=== PATIENT | male | born 1985 | race Two or more races ===

== ENCOUNTER 2017-01-15 23:18 | Emergency (ER) | payer MEDICAID ==
[~2017-01-15] VITALS: Ht 172.7 cm; Wt 79.0 kg
[2017-01-15] MEDS ORDERED: SODIUM CHLORIDE 0.9% 1,000 ML IV ONE (23:48)
[2017-01-15] MEDS ORDERED: ONDANSETRON HCL 4MG/2ML VIAL IV STA (23:48)
[2017-01-16 00:18] LABS: BASOPHILS % 2.2 % (0.0-2.0); EOSINOPHILS % 0.2 % (0.0-5.0); HEMATOCRIT. 38.2 % (42.0-52.0); HEMOGLOBIN. 13.4 g/dL (14.0-18.0); LYMPHOCYTES % 40.4 % (20.0-50.0); MEAN CORPUSCULAR HEMOGLOBIN 33.3 pg (28.0-32.0); MEAN CORPUSCULAR VOLUME 94.5 fL (80.0-94.0); MEAN PLATELET VOLUME 8.5 fl (7.4-10.4); MONOCYTES % 8.8 % (2.0-8.0); NEUTROPHILS % 48.4 % (40.0-76.0); PLATELET 145 x1000/uL (130-400); RED BLOOD CELL COUNT 4.04 mill/uL (4.7-6.1); RED CELL DISTRIBUTION WIDTH 15.4 % (11.6-14.6)
[2017-01-16 00:31] LABS: CHLORIDE 94 mEq/L (98-107)
[2017-01-16 00:39] LABS: CARBON DIOXIDE 28 mEq/L (21-32)
[2017-01-16 00:40] LABS: ETHANOL BLOOD 183 mg/dL
[2017-01-16] MEDS ORDERED: LORAZEPAM 1MG TABLET PO ONE (02:15)
[2017-01-16 03:09] LABS: CLARITY URINE CLEAR (CLEAR); COLOR URINE DARK YELLOW (YELLOW); GLUCOSE URINE NEGATIVE (NEGATIVE); KETONES URINE TRACE (NEGATIVE); LEUKOCYTE ESTERASE URINE NEGATIVE (NEGATIVE); NITRITE URINE NEGATIVE (NEGATIVE); OCCULT BLOOD URINE NEGATIVE (NEGATIVE); PROTEIN URINE TRACE (NEGATIVE); SPECIFIC GRAVITY URINE 1.028 (1.005-1.030)
[2017-01-16 05:34] VITALS: BP 130/75
== END 2017-01-16 05:38 | disposition home or self-care (01) ==
LOC: ER 23:18
DX: F10.129 Alcohol abuse with intoxication, unspecified (principal); F41.9 Anxiety disorder, unspecified; F17.200 Nicotine dependence, unspecified, uncomplicated; Y90.6 Blood alcohol level of 120-199 mg/100 ml
CPT/HCPCS: 36415; 80053; 81001; 83690; 85025; 96361; 96374; 99284; G0482; J2405; J7030; Z7610